=== PATIENT | female | born 1965 | race African-American/Black ===

== ENCOUNTER 2017-07-28 13:29 | Emergency (ER) | payer SELFPAY | END 2017-07-28 13:45 | disposition left against medical advice (07) | LOC: D.ER 13:29 | DX: I50.9 Heart failure, unspecified (principal); I10 Essential (primary) hypertension; F17.200 Nicotine dependence, unspecified, uncomplicated ==

== ENCOUNTER 2017-07-28 14:54 | Emergency (ER) | payer MEDICAID ==
[2017-07-28 16:05] LABS: BASOPHILS 0.3 % (0-2); EOSINOPHILS 0.4 % (0-7); HEMATOCRIT 52.8 % (36.0-48.0); HEMOGLOBIN 15.8 g/dL (12-16); IMMATURE GRANULOCYTES 0.3 % (0-5); LYMPHOCYTES 28.3 % (15-50); MCH 27.6 pg (26.0-34.0); MCHC 29.9 g/dL (31.0-37.0); MCV 92.1 fL (80.0-100.0); MONOCYTES 8.7 % (2-11); PLATELET COUNT 175 10x3/uL (130-400); RBC 5.73 10x6/uL (4.00-5.40); RDW 15.8 % (11.5-14.5)
[2017-07-28 17:03] LABS: ALBUMIN 3.3 g/dL (3.4-5.0); BILIRUBIN - TOTAL 0.9 mg/dL (0.2-1.3); CALCIUM 8.8 mg/dL (8.5-10.1); CARBON DIOXIDE 34.3 mmol/L (21.0-32.0); CREATININE - SERUM 0.9 mg/dL (0.6-1.3); POTASSIUM - SERUM 4.3 mmol/L (3.5-5.1); PROTEIN - SERUM 6.9 g/dL (6.4-8.2)
[2017-07-28 17:14] LABS: TROPONIN-I 0.024 ng/mL (0.000-0.060)
== END 2017-07-28 18:51 | disposition home or self-care (01) ==
LOC: D.ER 14:54
PROVIDERS: Physician Assistant
DX: I50.9 Heart failure, unspecified (principal); I10 Essential (primary) hypertension; F17.200 Nicotine dependence, unspecified, uncomplicated